=== PATIENT | female | born 1975 | race Caucasian/White ===

== ENCOUNTER 2021-06-09 07:15 | Emergency (ER) | payer BC, SELFPAY ==
--- NOTE | ~2021-06-09 | CT_ITS ---
EXAMINATION: CT brain wo con DATE: 06/09/2021 07:58 INDICATION: Gait instability TECHNIQUE: Computed tomography (CT) of the head was performed without intravenous contrast. Sagittal and coronal reconstructions were performed. The mA was adjusted according to patient size. Iterative reconstruction technique was employed. The dose-length product was 605.33 mGy-cm. COMPARISON: None FINDINGS: No acute intracranial hemorrhage, acute infarction or abnormal extra axial fluid collection. Ventricl es are normal and symmetric. No mass/mass effect. The orbits, paranasal sinuses and mastoid air cells are normal. IMPRESSION: 1. Normal head CT. Reviewed, dictated and finalized at location A. IMPRESSION: 1. Normal head CT.
[2021-06-09 07:12] VITALS: BP 115/78; PULSE 106; RESP 21; TEMP 36.8; O2SAT 100
--- NOTE | 2021-06-09 07:26 | ECG_ITS ---
Measurements Intervals [place] Rate: 100 P: 52 UT: 159 QRS: -23 QRSD: 110 T: 59 QT: 360 QTc: 466 Interpretive Statements SINUS TACHYCARDIA LOW QRS VOLTAGE IN PRECORDIAL LEADS BORDERLINE R WAVE PROGRESSION, ANTERIOR LEADS BORDERLINE T WAVE ABNORMALITY- HIGH LATERAL LEADS BASELINE ARTIFACT- I, II, III, AVR, AVF, V1, V3-V6 BORDERLINE ECG Electronically Signed On 06-09-2021 11:45:53 CDT by Eladio Espino D.O.
[2021-06-09 07:32] VITALS: BP 115/78; PULSE 106; RESP 21; TEMP 36.8; O2SAT 100
[2021-06-09 07:49] LABS: Basophils Absolute Auto 0.1 K/mm3 (0.0-0.1); Basophils Percent Auto 0.6 % (0.2-1.2); Eosinophils Absolute Auto 0.1 K/mm3 (0-0.3); Eosinophils Percent Auto 1.8 % (0-4.4); Hematocrit 36.3 % (37.0-47.0); Hemoglobin 11.8 g/dL (12.0-15.0); Immature Granulocyte Absolute 0.02 K/mm3 (0.00-0.031); Immature Granulocyte Percent A 0.3 % (0-0.5); Lymphocytes Absolute Auto 1.51 K/mm3 (0.9-3.2); Lymphocytes Percent Auto 19.1 % (18.3-44.2); Mean Corpuscular HGB Conc 32.5 g/dl (32-36); Mean Corpuscular Hemoglobin 28.6 pg (26-34); Mean Corpuscular Volume 87.9 fl (80-100); Mean Platelet Volume 9.6 fl (7.4-10.4); Monocytes Absolute Auto 0.8 K/mm3 (0.1-0.6); Monocytes Percent Auto 9.9 % (2.6-8.5); Neutrophils Absolute Auto 5.4 K/mm3 (1.3-6.7); Neutrophils Percent Auto 68.3 % (45.5-73.1); Platelet Count Result 218 k/mm3 (150-375); Red Blood Count 4.13 M/mm3 (4.2-5.4); Red Cell Distribution Width 17.1 % (11.5-14.5); White Blood Count 7.9 K/mm3 (4.5-10.0)
--- NOTE | 2021-06-09 07:52 | ED.GENADULT ---
HPI - General Adult General Chief complaint: Fall Stated complaint: unsteady gait Time Seen by Provider: 06/09/21 07:17 Source: patient History of Present Illness HPI narrative: Patient is a 45 y/o female complaining of fall and difficulty with getting up. She states that she fell in bathroom prior to arrival. She denies any pain or injury. She did not lose consciousness. However, she had difficulty getting up even with the help of her . She fell several other times early this morning. She admits to drinking 2 days ago and taking THC tablets. She is also on anxiety medications. Related Data Home Medications Medication Instructions Recorded Confirmed buspirone mg 06/09/21 clomipramine 06/09/21 clomipramine 06/09/21 cyanocobalamin (vitamin B-12) mcg 06/09/21 ferrous sulfate [FeroSul] mg 06/09/21 fluoxetine mg 06/09/21 fluoxetine mg 06/09/21 folic acid 06/09/21 hydroxyzine pamoate 06/09/21 levothyroxine 06/09/21 lorazepam 06/09/21 metformin mg PO 06/09/21 methylphenidate HCl mg PO 06/09/21 spironolactone 06/09/21 tizanidine mg PRN 06/09/21 zolpidem PO 06/09/21 zolpidem PO 06/09/21 Allergies Allergy/AdvReac Type Severity Reaction Status Date / Time No Known Allergies Allergy Verified 06/09/21 07:19 Review of Systems Constitutional: Constitutional: Denies chills, Denies fever(s), Denies headache(s), Reports weakness and Reports other Eyes: Eyes: Denies blurry vision ENT: Denies headache(s) and Denies neck pain Cardiovascular: Cardiovascular: Denies chest pain and Denies dyspnea Respiratory: Respiratory: Denies cough and Denies dyspnea Gastrointestinal: Gastrointestinal: Denies abdominal pain, Denies diarrhea, Denies nausea and Denies vomiting Genitourinary: Genitourinary: Denies hematuria and Denies dysuria Musculoskeletal: Musculoskeletal: Denies back pain and Denies neck pain Neurologic: Reports abnormal gait, Denies headache(s), Denies focal weakness and Reports weakness PMFSH Social History Social History Gender identity (if verbalized by the patient): Female Exam Const: General: no acute distress and well developed Orientation/consciousness: oriented to person, oriented to place, oriented to time and patient oriented x3 HENMT: Head: normocephalic Ears: external ears normal General nose exam: Normal external nose present Eyes: General: appearance normal, both eyes and all related structures Conjunctivae: conjunctivae normal Neck: Neck: normal visual inspection and full ROM Chest: Chest palpation & inspection: normal inspection of the chest and no tenderness Resp: Effort & Inspection: normal respiratory effort Auscultation: clear to auscultation bilaterally Cardio: Rate: regular rate Rhythm: regular rhythm GI: GI Palp: No abdominal tenderness and Yes Soft to palpation Skin: General skin exam: normal color and turgor normal Neuro: General: oriented to person, oriented to place, oriented to time and patient oriented x3 Cranial nerves: Yes CN's II-XII intact bilaterally Cognition (Neuro): normal cognition Speech: normal speech Motor exam (neuro): 5/5 motor strength present throughout Sensory Exam: normal sensation Coordination: [id number] test normal and [id number] test normal Extrem: General: normal to inspection, full ROM and no pedal edema Psych: Appearance: grossly normal Mental Status: mental status grossly normal Affect: normal affect Course Reevaluation(s) Reevaluation #1: Rechecked. Patient is able to ambulate with steady gait without assist. Informed patient about abnormal LFTs and the need for follow up. Patient states that she is aware of her abnormal LFTs and will follow up with her doctor. Date: 06/09/21 Time: 11:50 Vital Signs Vital signs: Vital Signs Temperature 36.8 C 06/09/21 07:12 Pulse Rate 106 H 06/09/21 07:12 Respiratory Rate 21 H 06/09/21 07:12 Blood Press
[2021-06-09 08:04] LABS: Alanine Aminotransferase 54 U/L (4-35); Albumin Level 3.5 g/dL (3.5-5.1); Alkaline Phosphatase 236 U/L (38-126); Anion Gap 11 mmol/L (8-16); Aspartate Amino Transferase 105 U/L (14-36); Bilirubin,Total 0.8 mg/dL (0.2-1.3); Blood Urea Nitrogen 5 mg/dL (7-17); Calcium 8.5 mg/dL (8.4-10.2); Carbon Dioxide 20 mmol/L (22-30); Chloride 106 mmol/L (98-107); Estimated CRCL calculation 109 ml/min; Estimated Glomerular Filt Rate > 60; Ethanol < 10 mg/dL (<10); Glucose 98 mg/dL (65-110); Potassium 3.6 mmol/L (3.4-5.0); Sodium 137 mmol/L (137-145)
[2021-06-09 08:12] LABS: Add Urine Microscopic? YES; Appearance Urine Clear (Clear); Bacteria Urine Trace /hpf; Bilirubin Urine Negative (Negative); Blood Urine 2+ (Negative); Color Urine Yellow (Yellow); Glucose Urine UA Negative (Negative); Ketones Urine Negative (Negative); Leukocyte Esterase Ur Negative LEU/UL (Negative); Mucus Urine Rare /lpf; Nitrate Urine Negative (Negative); Protein Urine Negative (Negative); RBC Urine 0-2 /hpf (0-2); Specific Grav Ur 1.008 (1.001-1.035); Squamous Epithelial Cell Urine Occasional /hpf (Few); WBC Urine 0-3 /hpf
[2021-06-09 08:21] LABS: Pregnancy On Board Control Positive; Urine Pregnancy Test Negative
[2021-06-09 08:22] LABS: Amphetamine Screen Urine Negative (Negative); Benzodiazepines Screen Urine Negative (Negative); Cannabinoid Screen Urine Negative (Negative); Cocaine Screen Urine Negative (Negative); Methadone Screen Urine Negative (Negative); Phencyclidine Screen Urine Negative (Negative)
[2021-06-09 08:25] LABS: Barbiturate Screen Urine Negative (Negative)
[2021-06-09 08:32] LABS: Opiate Screen Urine Negative (Negative)
[2021-06-09 09:21] VITALS: BP 133/78; PULSE 99; RESP 26; O2SAT 96
[2021-06-09 10:20] VITALS: BP 119/82; PULSE 93; RESP 24; O2SAT 99
[2021-06-09 11:34] VITALS: PULSE 91; RESP 19; O2SAT 97
[2021-06-09 12:04] VITALS: BP 132/80; PULSE 96; RESP 16; O2SAT 97
== END 2021-06-09 12:05 | disposition home or self-care (01) ==
PROVIDERS: Emergency Provider Emergency Medicine
DX: Z04.3 Encounter for examination and observation following other accident (principal); R00.0 Tachycardia, unspecified; R94.31 Abnormal electrocardiogram [ECG] [EKG]; F41.9 Anxiety disorder, unspecified; F32.9 Major depressive disorder, single episode, unspecified; Z79.84 Long term (current) use of oral hypoglycemic drugs; W19.XXXA Unspecified fall, initial encounter
CPT/HCPCS: 36415; 70450; 80053; 80307; 81001; 81025; 85025; 93005; 99284